=== PATIENT | female | born 1950 | race Hispanic/Latino ===

== ENCOUNTER → 2024-09-23 | Outpatient (REF) | payer MEDICARE | LOC: MRI 10:46 | PROVIDERS: ATTEND Ophthalmology | DX: H47.011 Ischemic optic neuropathy, right eye (principal); H25.11 Age-related nuclear cataract, right eye; H35.363 Drusen (degenerative) of macula, bilateral; K21.9 Gastro-esophageal reflux disease without esophagitis | CPT/HCPCS: 70540; 70551 ==